=== PATIENT | male | born 1955 | race Caucasian/White ===

== ENCOUNTER 2021-11-04 16:30 | Outpatient (CLI) | payer MEDICARE, OTHER | END 2021-11-04 16:31 | disposition home or self-care (01) | LOC: SLEEPLAB 16:30 | PROVIDERS: ATTEND Family Medicine | DX: G47.33 Obstructive sleep apnea (adult) (pediatric) (principal); R06.83 Snoring | CPT/HCPCS: 95806 ==

== ENCOUNTER 2021-12-15 16:18 | Outpatient (CLI) | payer MEDICARE, OTHER | END 2021-12-15 16:19 | disposition home or self-care (01) | LOC: SCSRAD 16:18 | PROVIDERS: ATTEND Family Medicine | DX: M79.641 Pain in right hand (principal); M19.041 Primary osteoarthritis, right hand ==